=== PATIENT | female | born 1945 | race Caucasian/White ===

== ENCOUNTER 2016-09-01 11:00 | Outpatient (CLI) | payer MEDICARE, OTHER ==
[~2016-09-01] VITALS: Ht 157.5 cm; Wt 59.0 kg
[~2016-09-01 11:00] MED LIST: CYCL10TA9 PO; DOCU-143 PO; HYDR-1231 PO; HYDR-3812 PO; NAPR-243 PO; VALS1TAB48; multivitamin; thyroid
[2016-09-01] MEDS ORDERED: LEVO75TA6 PO (11:03)
[2016-09-01] MEDS ORDERED: MULT-593 PO (11:03)
[2016-09-01] MEDS ORDERED: CHOL500049 PO (11:03)
== END 2016-09-01 13:14 ==
LOC: PREOP 11:00
PROVIDERS: ATTEND Internal Medicine
DX: Z01.818 Encounter for other preprocedural examination (principal); Z12.11 Encounter for screening for malignant neoplasm of colon; Z80.0 Family history of malignant neoplasm of digestive organs

== ENCOUNTER 2016-09-02 09:02 | Day surgery (SDC) | payer MEDICARE, OTHER ==
[~2016-09-02] VITALS: Ht 157.5 cm; Wt 59.0 kg
[~2016-09-02 09:02] MED LIST changes: +CHOL500049 PO; +LEVO75TA6 PO; +MULT-593 PO
[2016-09-02] MEDS ORDERED: 1/2 NS IV SOLUTION 1,000 ML IV STA (09:09)
[2016-09-02] MEDS ORDERED: FLUMAZENIL (ROMAZICON) 0.1 MG/ML 5 ML VIAL INJ PRN (09:15)
[2016-09-02] MEDS ORDERED: NALOXONE 0.4 MG/ML 1 ML (NARCAN) VIAL IVP PRN (09:15)
[2016-09-02 09:43] VITALS: BP 161/90
--- NOTE | 2016-09-02 09:47 | HISTORY AND PHYSICAL ---
DATE OF ADMISSION: 09/02/2016 DICTATING PHYSICIAN: Dr. Hernandez COLONOSCOPY HISTORY AND PHYSICAL: Ms. Rudolph is a 71-year-old white female referred by Dr. Thorne for screening colonoscopy. She is deemed to be higher than average risk as her mother succumbed to colon cancer at the age of 72. She is not aware of any other family history for colon cancer or colon polyps. She accomplished colonoscopy per Dr. Lee in May 2010 at which time no evidence for neoplasia was noted. She had what sounded like mild diverticular disease confined to the sigmoid colon and some tortuosity at the hepatic flexure. She denies any bowel habit change and denies bright red blood per rectum or melena. Her weight has been stable, appetite has been normal. PAST MEDICAL AND PAST SURGICAL HISTORY: Significant for: 1. Left thyroid lobectomy for apparent benign disease. 2. Left breast lumpectomy and axillary node dissection in 2000 for breast cancer. 3. in 1971 and 1973. 4. Sinus surgery and removal retention cyst in 1998. 5. She does have a distant past history of neck radiation for treatment of adenoid tissue when she was a child. 6. She has history of hypertension and is on thyroid replacement. MEDICATIONS: On admission include: 1. Valsartan HCT 80/12.5 daily. 2. L-thyroxine 75 mcg daily. 3. Vitamin D 50,000 units weekly. 4. Multiple vitamin daily. ALLERGIES: She has no known drug allergies. SOCIAL HISTORY: She is retired and previously had been a teacher at [employer] with no past smoking history. Only occasional social alcohol intake well within the category of moderate drinking. FAMILY HISTORY: Family history is pertinent for her mother's colon cancer as noted in the HPI. Her father succumbed to pancreatic cancer in his 60s. Mother also had a history of hypertension. PHYSICAL EXAMINATION: Reveals a well-appearing white female in no acute distress, well kempt and articulate. VITAL SIGNS: Blood pressure 120/70, heart rate 72 and regular. NECK: Revealed no JVD, adenopathy or bruits. HEENT: Oral cavity reveals Mallampati class I pharyngeal configuration. Pharynx is clear. CHEST: Clear. CV: Reveals a regular rate and rhythm without murmur, S3 or S4. ABDOMEN: Soft, supple without masses, organomegaly or tenderness. Bowel sounds are noted in all 4 quadrants. No bruits are noted. EXTREMITIES: Reveal no cyanosis, clubbing, or edema. ASSESSMENT: The patient is set-up for screening colonoscopy on 09/02/2015. Prep instructions with split dose Colyte were given and questions were answered. I thank you for the referral of this pleasant lady. Sincerely, Job ID: [id number] Dictated Date: 08/26/2016 12:22:00 Aeronautics Teacher Date: 08/29/2016 06:38:04/ghislaine
--- NOTE | 2016-09-02 10:00 | Pre-Op Note & Conscious Sedat ---
Pre-Operative Progress Note H&P Reviewed The H&P was reviewed, patient examined and no changes noted. Date H&P Reviewed: Sep 02, 2016 Time H&P Reviewed: 09:59 Conscious Sedation Pre-Proced ASA Class: 2 Airway Mallampati Classification: ([place]ak appropriate class) I. II. III, IV Lungs Heart ASA score ASA 1: a normal healthy patient ASA 2: a patient with a mild systemic disease (mid diabetes, controlled hypertension, obesity ASA 3: a patient with a severe systemic disease that limits activity (angina , COPD, prior Myocardial infarction) ASA 4: a patient with an incapacitating disease that is a constant threat to life (CHF, renal failure) ASA 5: a moribund patient not expected to survive 24 hrs. (ruptured aneurysm) ASA 6: a declared brain patient whose organs are being harvested. For emergent operations, add the letter E after the classification Grade 1 Sedation Plan: Analgesia, Amnesia, Plan communicated to team members, Discussed options with patient/fam, Discussed risks with patient/fam Note The patient is an appropriate candidate to undergo the planned procedure, sedation, and anesthesia. The patient immediately re-assessed prior to indication. TAMMY HEREDIA MD Sep 02, 2016 10:00
[2016-09-02] MEDS ORDERED: fentaNYL INJECTION 100 MCG/2 ML AMP ONE ×2 (10:03→10:45)
[2016-09-02] MEDS ORDERED: LIDOCAINE JELLY 2% (XYLOCAINE) 5 ML TUBE ONE (10:03)
[2016-09-02] MEDS ORDERED: MIDAZOLAM 2 MG/2 ML (VERSED) VIAL ONE ×5 (10:03→10:54)
[2016-09-02] MEDS: fentaNYL INJECTION 100 MCG/2 ML AMP IVP PRN ×3 (10:27→10:50)
[2016-09-02] MEDS: MIDAZOLAM 2 MG/2 ML (VERSED) VIAL IVP PRN ×5 (10:30→11:00)
[2016-09-02] MEDS ORDERED: LIDOCAINE JELLY 2% (XYLOCAINE) 5 ML TUBE TOP ONE (11:15)
[2016-09-02 11:20] VITALS: BP 173/81
[2016-09-02 11:50] VITALS: BP 160/89
[2016-09-02 12:15] VITALS: BP 160/89
--- NOTE | 2016-09-04 11:55 | PROCEDURE REPORT ---
PROCEDURE PHYSICIAN: TAMMY HEREDIA DATE OF PROCEDURE: 09/02/2015 INDICATION FOR THE PROCEDURE: Screening colonoscopy. The patient was placed in the left lateral decubitus position. Prior to undergoing colonoscopy, underwent digital rectal evaluation. Anal sphincter tone was normal. The perianal reflex was intact. The colonoscope was then inserted into the rectum and under visualization, advanced to cecum. The cecum was identified by identification of the ileocecal valve and cecal strap. Photographic documentation was obtained. Careful inspection was made as colonoscope was withdrawn. FINDINGS: No evidence for internal or external hemorrhoids and the rectum, sigmoid colon, descending colon, splenic flexure and the mid and distal transverse colon were unremarkable. Several small to medium sized diverticulum were noted in the proximal transverse colon and hepatic flexure. The ascending colon and cecum were normal. There is no evidence for diverticulitis. No evidence for neoplasia was noted. ASSESSMENT: Mild diverticular disease, unusually noted only in the proximal transverse colon and hepatic flexure. This was an otherwise normal colonoscopy to the cecum. I thank you for the referral of this pleasant lady. Considering family history would advocate repeat colonoscopy in 5 yrs. I thank you for the referral of this pleasant lady. Sincerely, Tammy Heredia Job ID: [id number] Dictated Date: 09/02/2016 11:16:11 Dredge Worker Date: 09/04/2016 11:48:16 / jackelin OLEARY
== END 2016-09-02 12:15 | disposition home or self-care (01) ==
LOC: SDC 09:02
PROVIDERS: ATTEND Internal Medicine
DX: Z12.11 Encounter for screening for malignant neoplasm of colon (principal); K57.30 Diverticulosis of large intestine without perforation or abscess without bleeding

== ENCOUNTER → 2016-12-01 | Outpatient (CLI) | payer MEDICARE, OTHER ==
[~2016-12-01] MED LIST changes: +GADOBUTROL 7.5 MMOL/7.5 ML (GADAVIST) VIAL IV ONE
[2016-12-01 07:35] LABS: BLOOD UREA NITROGEN 10 MG/DL (7-18); BUN/CREATININE RATIO 13; GFR ESTIMATED > 60
--- NOTE | 2016-12-01 12:06 | Diagnostic Imaging Report ---
PROCEDURE: MR imaging of the brain with and without contrast. TECHNIQUE: Multiplanar, multisequence MR imaging of the brain was performed with and without contrast. INDICATION: Chronic headache. History of breast cancer 15 years ago. 6 mL of Gadovist is administered intravenously. FINDINGS: There is no diffusion restriction to suggest an acute infarct. The brain demonstrates periventricular and subcortical white matter T2 hyperintense lesions not associated with mass effect or post contrast enhancement. These are suggestive of chronic microvascular ischemic changes. There is no enhancing mass. No hydrocephalus. No extra-axial fluid collection is seen. The brainstem and the cerebellum appear unremarkable. The pituitary gland is normal in size. No hypothalamic or pineal region mass. The central vascular flow voids appear grossly unremarkable. The internal auditory canals and inner ear structures appear also unremarkable. There is diffusion restriction and obliteration of the left frontal sinus with peripheral mucosal enhancement seen. This may relate to a polyp or sinusitis. There is also minimal mucosal thickening in the anterior and mid ethmoid air cells. The orbits appear grossly unremarkable. IMPRESSION: 1. No acute infarct or enhancing mass. 2. Left frontal sinus obliteration may relate to sinusitis or a polyp. Correlate clinically. Dictated by: Dictated on workstation # [id number]
== END ==
LOC: RAD 06:55
PROVIDERS: ATTEND Nurse Practitioner
DX: R51 Headache (principal)
CPT/HCPCS: 36415; 70553; 82565; 84520

== ENCOUNTER → 2018-09-04 | Outpatient (CLI) | payer MEDICARE, OTHER ==
[~2018-09-04] MED LIST changes: +ACHD5005 PO; -GADOBUTROL 7.5 MMOL/7.5 ML (GADAVIST) VIAL IV ONE; -HYDR-3812 PO
--- NOTE | 2018-09-04 20:36 | Diagnostic Imaging Report ---
INDICATION: Routine screening. COMPARISON is made with prior exam from 08/09/2016 and 08/06/2015. 2-D and 3-D bilateral screening mammography was performed with CAD. FINDINGS: Both breasts remain heterogeneously dense, limiting the sensitivity of mammography. Lumpectomy changes upper outer left breast are again noted. The overall parenchymal pattern appears stable. No mass or malignant appearing microcalcifications are seen. Axillae are are unremarkable. IMPRESSION: BI-RADS category 2. No mammographic features suspicious for malignancy are identified. ACR BI-RADS Category 2: Benign findings. Result letter will be mailed to the patient. Note: At least 10% of breast cancer is not imaged by mammography. Dictated by: Dictated on workstation # [id number]
== END ==
LOC: RAD 14:06
PROVIDERS: ATTEND Nurse Practitioner
DX: Z12.31 Encounter for screening mammogram for malignant neoplasm of breast (principal)
CPT/HCPCS: 77067

== ENCOUNTER → 2018-10-22 | Outpatient (CLI) | payer MEDICARE, OTHER ==
--- NOTE | 2018-10-22 13:10 | Diagnostic Imaging Report ---
INDICATION: Knee pain. Three views were obtained. FINDINGS: The alignment is normal. There are mild degenerative changes. There is no fracture or dislocation. Soft tissues are unremarkable. IMPRESSION: Mild degenerative changes, otherwise unremarkable. Dictated by: Dictated on workstation # [id number]
== END ==
LOC: RAD 11:10
PROVIDERS: ATTEND Internal Medicine
DX: M17.12 Unilateral primary osteoarthritis, left knee (principal)
CPT/HCPCS: 73562

== ENCOUNTER → 2018-11-06 | Outpatient (CLI) | payer MEDICARE, OTHER ==
--- NOTE | 2018-11-06 11:08 | Diagnostic Imaging Report ---
INDICATION: Postmenopausal screening for osteoporosis. COMPARISON: None FINDINGS: AP Spine L1-L4: [BMD (g/cm2): 1.010] [T-Score: -1.6] [Z-Score: 0.4] [BMD Previous: 1.1] [BMD % Change: -8.2] LT Hip Neck: [BMD (g/cm2): 0.709] [T-Score: -2.4] [Z-Score: -0.3] LT Hip Total: [BMD (g/cm2):0.741] [T-Score:-2.1] [Z-Score: -0.3] [BMD Previous: 0.922] [BMD % Change: NA] RT Hip Neck: [BMD (g/cm2):0.715] [T-Score:-2.3] [Z-Score:-0.3] RT Hip Total: [BMD (g/cm2):0.740] [T-score:-2.1] [Z-Score:-0.3] [BMD Previous:0.891] [BMD % Change:NA] *Indicates significant change from prior examination based on 95% confidence level. World Health Organization criteria for BMD interpretation classify patients as Normal (T-score at or above -1.0), Osteopenic (T-score between -1.0 and -2.5) or Osteoporotic (T-score at or below -2.5). LIMITATIONS AND MODIFICATION: None. FRACTURE RISK (FRAX SCORE): The ten year probability of (%): Major Osteoporotic Fracture: [14.3] Hip Fracture: [4.2] IMPRESSION: 1. Osteopenia (Low bone mass). 2. Baseline examination. 3. See below National Osteoporosis Foundation guidelines on when to potentially initiate pharmacologic therapy. Based on the National Osteoporosis Foundation Guidelines, pharmacologic treatment should be initiated in any of the following, unless clinical conditions suggest otherwise: * Any patient with prior fragility fracture of the hip or vertebrae. A spine fracture indicates 5X risk for subsequent spine fracture and 2X risk for subsequent hip fracture. * Osteoporosis (T-score <-2.5). * Postmenopausal women and men age 50 and older with low bone mass/osteopenia (T-score between -1.0 and -2.5) by DXA and 10-year major osteoporotic fracture greater than 20% or a 10-year probability of hip fracture greater than 3%. These fracture risks are supplied above in the FRAX score, if applicable. * Clinician judgement and/or patient preferences may indicate treatment for people with 10-year fracture probabilities above or below these levels. Dictated by: Dictated on workstation # [id number]
== END ==
LOC: RAD 09:17
PROVIDERS: ATTEND Nurse Practitioner
DX: Z13.820 Encounter for screening for osteoporosis (principal); M85.89 Other specified disorders of bone density and structure, multiple sites; Z78.0 Asymptomatic menopausal state
CPT/HCPCS: 77080

== ENCOUNTER 2019-01-12 17:16 | Emergency (ER) | payer MEDICARE, OTHER | END 2019-01-12 19:03 | disposition home or self-care (01) | LOC: ER 17:16 ==

== ENCOUNTER → 2019-09-05 | Outpatient (CLI) | payer MEDICARE, OTHER ==
--- NOTE | 2019-09-05 12:07 | Diagnostic Imaging Report ---
INDICATION: Routine screening. Comparison is made with prior mammogram from 09/04/2018 and 08/09/2016. 2-D and 3-D bilateral screening mammography was performed with CAD. Both breasts remain heterogeneously dense, limiting the sensitivity of mammography. Post lumpectomy changes in the left breast are again noted. No mass or malignant appearing microcalcifications are seen. There are benign calcifications. Multiple surgical clips left axilla are noted. IMPRESSION: BI-RADS Category 2 No mammographic features suspicious for malignancy are identified. ACR BI-RADS Category 2: Benign findings. Result letter will be mailed to the patient. Note: At least 10% of breast cancer is not imaged by mammography. Dictated by: Dictated on workstation # [id number]
== END ==
LOC: RAD 10:06
PROVIDERS: ATTEND Internal Medicine
DX: Z12.31 Encounter for screening mammogram for malignant neoplasm of breast (principal)
CPT/HCPCS: 77067

== ENCOUNTER → 2021-03-04 | Outpatient (CLI) | payer MEDICARE, OTHER ==
--- NOTE | 2021-03-04 14:24 | Diagnostic Imaging Report ---
EXAMINATION: Right ankle 3 views HISTORY: Right ankle swelling and pain COMPARISON: None available. FINDINGS: There is soft tissue swelling about right ankle. Mortise is intact. Talar dome is normal. No acute fracture is seen. There is a small heel spur. IMPRESSION: 1. Soft tissue swelling about the right ankle without acute fracture. Dictated by: Dictated on workstation # [id number]
== END ==
LOC: RAD 13:48
PROVIDERS: ATTEND Nurse Practitioner Family
DX: M25.471 Effusion, right ankle (principal); M25.571 Pain in right ankle and joints of right foot
CPT/HCPCS: 73610

== ENCOUNTER → 2023-01-12 | Outpatient (CLI) | payer MEDICARE, OTHER ==
--- NOTE | 2023-01-12 11:34 | Diagnostic Imaging Report ---
PROCEDURE: CT head without contrast. TECHNIQUE: Multiple contiguous axial images were obtained through the brain without the use of intravenous contrast. Auto Exposure Controls were utilized during the CT exam to meet ALARA standards for radiation dose reduction. INDICATION: Memory loss. Ventricles and sulci are prominent consistent with cerebral volume loss. No sulcal effacement is identified. There is no midline shift. No acute intra-axial or extra-axial hemorrhage is detected. Cisterns are patent. The visualized paranasal sinuses are clear apart from opacification of the left frontal sinus, similar to the MRI brain study from 12/01/2016. IMPRESSION: Chronic and senescent changes. No acute intracranial process is detected. Dictated by: Dictated on workstation # [id number]
== END ==
LOC: RAD 11:03
PROVIDERS: ATTEND Internal Medicine
DX: R41.3 Other amnesia (principal)
CPT/HCPCS: 70450